=== PATIENT | female | born 1990 | race African-American/Black ===

== ENCOUNTER 2017-01-30 12:07 | Emergency (ER) | payer SELFPAY ==
[~2017-01-30] VITALS: Ht 170.2 cm; Wt 53.5 kg
[2017-01-30] MEDS ORDERED: ONDANSETRON PF 4 MG/2 ML VIAL. IV ONE (12:45)
[2017-01-30] MEDS ORDERED: IV NORMAL SALINE 1000ML BAG 1,000 ML IV ONE (12:45)
[2017-01-30] MEDS ORDERED: HYDROmorphone 2 MG/ML VIAL IV PRN (12:45)
[2017-01-30 12:48] LABS: BILIRUBIN,URINE NEGATIVE (NEG); GLUCOSE,URINE NEGATIVE (NEG); NITRITE,URINE NEGATIVE (NEG); PH,URINE 6.5; PROTEIN,URINE NEGATIVE (NEG-TRACE)
--- NOTE | 2017-01-30 12:52 | PHYS DOC ---
Past Medical History Past Medical History: No Pertinent History Additional Past Medical Histor: ectopic x2 Past Surgical History: Other Additional Past Surgical Histo: tubal with falopian tube removal. Alcohol Use: Occasionally Drug Use: None Adult General Chief Complaint Chief Complaint: ABDOMINAL PAIN HPI HPI 26-year-old female presenting with left lower quadrant abdominal pain/ suprapubic abdominal pain. Last 3 days. She has noticed increased vaginal discharge. She denies fevers or chills. She denies nausea or vomiting. The pain is a sharp shooting pain that is moderate intermittent and without alleviating factors. She does report a history of ectopic . Review of systems is negative for chest pain shortness of breath fevers or chills. All other review of systems is negative unless otherwise noted in history of present illness. ED course: 18-year-old female presenting to the emergency department with suprapubic abdominal pain in the left side. Afebrile here in the emergency room. Abdominal exam shows mild pain in the left adnexal region. Ultrasound of the pelvis was obtained along with blood work and pelvic exam performed in the presence of a female nurse. Patient has mucopurulent discharge with cervical motion tenderness without any fluctuant adnexal masses. Patient was given intramuscular Rocephin with oral doxycycline and flagyl to go home with. We'll refer the patient to our mixer wet pour Dr. Oliveira within the next 4-5 days. Review of Systems Review of Systems SEE ABOVE. Current Medications Current Medications Current Medications Medications (Trade) Dose Ordered Sig/Terri Start Time Stop Time Status Last Admin Dose Admin Ceftriaxone Sodium (Rocephin Im) 250 mg 1X ONCE 01/30/17 15:30 01/30/17 15:32 DC 01/30/17 15:39 250 MG Doxycycline Hyclate (Vibra-Tab) 100 mg 1X ONCE 01/30/17 15:30 01/30/17 15:32 DC 01/30/17 15:39 100 MG Hydromorphone HCl (Dilaudid) 0.5 mg PRN Q1HR PRN 01/30/17 12:45 01/30/17 13:17 0.5 MG Ondansetron HCl (Zofran) 4 mg 1X ONCE 01/30/17 12:45 01/30/17 12:51 DC 01/30/17 13:17 4 MG Piperacillin Sod/ Tazobactam Sod 4.5 gm/Sodium Chloride 100 ml @ 200 mls/hr 1X ONCE 01/30/17 13:45 01/30/17 14:14 UNV Sodium Chloride 1,000 ml @ 1,000 mls/hr 1X ONCE 01/30/17 12:45 01/30/17 13:44 DC 01/30/17 13:17 1,000 MLS/HR Allergies Allergies Allergies Coded Allergies Type Severity Reaction Last Updated Verified No Known Drug Allergies 01/19/14 No Physical Exam Physical Exam SEE ABOVE Constitutional: Well developed, well nourished, no acute distress, non-toxic appearance. [] HENT: Normocephalic, atraumatic, bilateral external ears normal, oropharynx moist, no oral exudates, nose normal. [] Eyes: PERRLA, EOMI, conjunctiva normal, no discharge. Neck: Normal range of motion, no tenderness, supple, no stridor. [] Cardiovascular:Heart rate regular rhythm, no murmur Lungs & Thorax: Bilateral breath sounds clear to auscultation [] Abdomen: See above Pelvic exam: See above Skin: Warm, dry, no erythema, no rash. Back: No tenderness, no CVA tenderness. [] Extremities: No tenderness, no cyanosis, no clubbing, ROM intact, no edema. Neurologic: Alert and oriented X 3, normal motor function, normal sensory function, no focal deficits noted. Psychologic: Affect normal, judgement normal, mood normal. [] Current Patient Data Vital Signs Vital Signs Date Time Temp Pulse Resp B/P (MAP) Pulse Ox O2 Delivery O2 Flow Rate FiO2 01/30/17 15:43 58 20 102/75 (84) 97 01/30/17 12:40 98.2 Room Air 98.2 Lab Values Laboratory Tests Test 01/30/17 12:26 01/30/17 12:27 01/30/17 12:55 White Blood Count 10.2 x10^3/uL (4.0-11.0) Red Blood Count 4.27 x10^6/uL (3.50-5.40) Hemoglobin 13.6 g/dL (12.0-15.5) Hematocrit 40.8 % (36.0-47.0) Mean Corpuscular Volume 96 fL (79-100) Mean Corpuscular Hemoglobin 32 pg (25-35) Mean Corpuscular Hemoglobin Concent 33 g/dL (31-37) Red Cell Distribution Width 12.5 % (11.5-14.5) Platelet Count 255 x10^3/uL (140-400) Neutrophils (%) (Auto) 76 % (31-73) H Lymphocytes (%) (Auto) 15 % (24-48) L Monocytes (%) (Auto) 7 % (0-9) Eosinophils (%) (Auto) 2 % (0-3) Basophils (%) (Auto) 1 % (0-3) Neutrophils # (Auto) 7.8 x10^3uL (1.8-7.7) H Lymphocytes # (Auto) 1.5 x10^3/uL (1.0-4.8) Monocytes # (Auto) 0.7 x10^3/uL (0.0-1.1) Eosinophils # (Auto) 0.2 x10^3/uL (0.0-0.7) Basophils # (Auto) 0.1 x10^3/uL (0.0-0.2) Urine Collection Type Unknown Urine Color Yellow Urine Clarity Clear Urine pH 6.5 Urine Specific [place] 1.025 Urine Protein Negative mg/dL (NEG-TRACE) Urine Glucose (UA) Negative mg/dL (NEG) Urine Ketones (Stick) 40 mg/dL (NEG) Urine Blood Negative (NEG) Urine Nitrite Negative (NEG) Urine Bilirubin Negative (NEG) Urine Urobilinogen Dipstick 1.0 mg/dL (0.2 mg/dL) Urine Leukocyte Esterase Small (NEG) Urine RBC 1-2 /HPF (0-2) Urine WBC 11-20 /HPF (0-4) Urine Squamous Epithelial Cells Mod /LPF Urine Bacteria 0 /HPF (0-FEW) Urine Mucus Marked /LPF Urine Trichomonas Present POC Urine HCG, Qualitative Hcg negative (Negative) Maternal Serum HCG Beta Subunit 1 mIU/mL (0-5) Sodium Level 141 mmol/L (136-145) Potassium Level 3.6 mmol/L (3.5-5.1) Chloride Level 104 mmol/L (98-107) Carbon Dioxide Level 29 mmol/L (21-32) Anion Gap 8 (6-14) Blood Urea Nitrogen 9 mg/dL (7-20) Creatinine 0.9 mg/dL (0.6-1.0) Estimated GFR (Cockcroft-Gault) 90.2 BUN/Creatinine Ratio 10 (6-20) Glucose Level 102 mg/dL (70-99) H Calcium Level 8.9 mg/dL (8.5-10.1) Total Bilirubin 0.4 mg/dL (0.2-1.0) Aspartate Amino Transferase (AST) 24 U/L (15-37) Alanine Aminotransferase (ALT) 23 U/L (14-59) Alkaline Phosphatase 102 U/L (46-116) Total Protein 7.4 g/dL (6.4-8.2) Albumin 4.1 g/dL (3.4-5.0) Albumin/Globulin Ratio 1.2 (1.0-1.7) Lipase 130 U/L (73-393) Laboratory Tests 01/30/17 12:26 Laboratory Tests 01/30/17 12:55 Microbiology 01/30/17 Wet Prep - Final, Complete EKG EKG [] Radiology/Procedures Radiology/Procedures [] Course & Med Decision Making Course & Med Decision Making Pertinent Labs and Imaging studies reviewed. (See chart for details) [] Dragon Disclaimer Dragon Disclaimer This electronic medical record was generated, in whole or in part, using a voice recognition dictation system. Departure Departure Impression: Primary Impression: Abdominal pain Additional Impression: PID (acute pelvic inflammatory disease) Disposition: 01 HOME, SELF-CARE Condition: STABLE Referrals: NO PCP (PCP) JODY OLIVEIRA Jr, MD Patient Instructions: Cervicitis, [id number] Additional Instructions: Thank you for allowing us to participate in your care today. Followup with Dr. Oliveira in 3 days if your symptoms do not improve. Call your Primary Doctor tomorrow and inform them of your visit today. If you do not have a primary care provider you can ask for a list of our primary care providers. Return to the emergency department you have any new or concerning findings. This should be evaluated by the primary care physician and any necessary consulting services for continued management within a few days after discharge. Return to emergency room if you have any new or concerning symptoms including but not limited to fever, chills, nausea, vomiting, intractable pain, any new rashes, chest pain, shortness of air, uncontrolled bleeding, difficulty breathing, and/or vision loss. Scripts Metronidazole (FLAGYL) 500 Mg Tablet 1 TAB PO BID for 14 Days, #28 TAB Prov: MIGUELITO NGUYEN MD 01/30/17 Doxycycline Hyclate (DOXYCYCLINE HYCLATE) 100 Mg Capsule 1 CAP PO BID, #27 CAP Start tomorrow morning on 01/31/17 Prov: MIGUELITO NGUYEN MD 01/30/17 Problem Qualifiers MIGUELITO NGUYEN MD Jan 30, 2017 12:52
[2017-01-30 13:03] LABS: BACTERIA,URINE 0 /HPF (0-FEW); SQUAMOUS EPITHELIAL CELL,UR MOD /LPF; TRICHOMONAS,URINE PRESENT
[2017-01-30 13:17] LABS: CALCIUM 8.9 mg/dL (8.5-10.1); CREATININE 0.9 mg/dL (0.6-1.0); GFR 90.2; POTASSIUM 3.6 mmol/L (3.5-5.1)
[2017-01-30 13:18] LABS: BASO # 0.1 x10^3/uL (0.0-0.2); BASO % 1 % (0-3); EOS % 2 % (0-3); HEMATOCRIT 40.8 % (36.0-47.0); HEMOGLOBIN 13.6 g/dL (12.0-15.5); LYMPH # 1.5 x10^3/uL (1.0-4.8); LYMPH % 15 % (24-48); MEAN CORPUSCULAR HEMOGLOBIN 32 pg (25-35); MEAN CORPUSCULAR HGB CONC 33 g/dL (31-37); MEAN CORPUSCULAR VOLUME 96 fL (79-100); MONO % 7 % (0-9); NEUT % 76 % (31-73); PLATELET COUNT 255 x10^3/uL (140-400); RED BLOOD COUNT 4.27 x10^6/uL (3.50-5.40); RED CELL DISTRIBUTION WIDTH 12.5 % (11.5-14.5); WHITE BLOOD COUNT 10.2 x10^3/uL (4.0-11.0)
--- NOTE | 2017-01-30 13:20 | RAD ---
PELVIS W/TV Clinical Indication: suprapubic abd pain, eval ovaries Comparison: None. Technique: Real-time ultrasound imaging of the pelvis using transabdominal and transvaginal window is performed. Findings: Transabdominal window is nondiagnostic due to overlying bowel gas. No pelvic free fluid. Anteverted uterus. Uterus measures 8.1 x 4.4 x 4.2 cm. No focal abnormality. The endometrial stripe is normal measuring 2 mm. Normal blood flow in the ovaries. Small follicles are seen in the ovaries. IMPRESSION: Normal pelvic ultrasound.
[2017-01-30 13:24] LABS: ALBUMIN 4.1 g/dL (3.4-5.0); ALBUMIN/GLOBULIN RATIO 1.2 (1.0-1.7); TOTAL BILIRUBIN 0.4 mg/dL (0.2-1.0); TOTAL PROTEIN 7.4 g/dL (6.4-8.2)
[2017-01-30] MEDS ORDERED: PIPERACILLIN/TAZOBACTAM 4.5 GM in IV NORMAL SALINE 100ML 100 ML IV ONE (13:45)
[2017-01-30] MEDS ORDERED: cefTRIAXone IM 250 MG VIAL IM ONE (15:30)
[2017-01-30] MEDS ORDERED: DOXYCYCLINE HYCLATE 100 MG TABLET PO ONE (15:30)
[2017-01-30] MEDS ORDERED: DOXY100C2 PO (15:33)
[2017-01-30 15:43] VITALS: BP 102/75
[2017-01-30] MEDS ORDERED: METR500T PO (16:07)
--- NOTE | 2017-02-04 14:15 | VNOTE ---
CALL BACK NOTE CALL BACK Microbiology 01/30/17 Wet Prep - Final, Complete 01/30/17 Urine Culture - Final, Complete 01/30/17 Urine Culture Result 1 (DEMI) - Final, Complete Attempted to notify patient of positive gonorrhea test from her vaginal ulcers on January 30. Patient was discharged on doxycycline and Flagyl so treatment is appropriate. Her voice mailbox was not set up so was unable to leave a message with the patient. KATERYNA [employer] PAD REPAIRER Feb 04, 2017 14:15
== END 2017-01-30 16:24 | disposition home or self-care (01) ==
LOC: ER 12:07
DX: N73.9 Female pelvic inflammatory disease, unspecified (principal)
CPT/HCPCS: 36415; 76830; 76856; 80053; 81001; 81025; 83690; 84702; 85025; 87086; 87491; 87591; 96361; 96372; 96374; 96375; 99285; J0696; J1170; J2405; J7030; Q0111

== ENCOUNTER 2018-05-16 00:15 | Emergency (ER) | payer SELFPAY ==
[~2018-05-16] VITALS: Ht 172.7 cm; Wt 54.9 kg
[~2018-05-16 00:15] MED LIST: DOXY100C2 PO; METR500T PO
[2018-05-16 00:37] LABS: BASO # 0.1 x10^3/uL (0.0-0.2); BASO % 0 % (0-3); EOS % 0 % (0-3); HEMATOCRIT 40.3 % (36.0-47.0); HEMOGLOBIN 13.6 g/dL (12.0-15.5); LYMPH # 1.5 x10^3/uL (1.0-4.8); LYMPH % 8 % (24-48); MEAN CORPUSCULAR HEMOGLOBIN 32 pg (25-35); MEAN CORPUSCULAR HGB CONC 34 g/dL (31-37); MEAN CORPUSCULAR VOLUME 94 fL (79-100); MONO # 0.3 x10^3/uL (0.0-1.1); MONO % 2 % (0-9); NEUT # 17.2 x10^3uL (1.8-7.7); NEUT % 90 % (31-73); PLATELET COUNT 259 x10^3/uL (140-400); RED BLOOD COUNT 4.28 x10^6/uL (3.50-5.40); RED CELL DISTRIBUTION WIDTH 12.8 % (11.5-14.5); WHITE BLOOD COUNT 19.1 x10^3/uL (4.0-11.0)
[2018-05-16 00:39] LABS: BILIRUBIN,URINE SMALL (NEG); CLARITY,URINE CLOUDY; COLOR,URINE AMBER; NITRITE,URINE NEGATIVE (NEG); PH,URINE 5.5; PROTEIN,URINE 30 mg/dL (NEG-TRACE)
[2018-05-16 00:47] LABS: BACTERIA,URINE FEW /HPF (0-FEW); SQUAMOUS EPITHELIAL CELL,UR MANY /LPF; WBC,URINE 20-40 /HPF (0-4)
[2018-05-16 00:54] LABS: GFR 78.8; POTASSIUM 3.5 mmol/L (3.5-5.1)
[2018-05-16 00:59] LABS: ALBUMIN 3.7 g/dL (3.4-5.0); ALBUMIN/GLOBULIN RATIO 0.8 (1.0-1.7); TOTAL PROTEIN 8.6 g/dL (6.4-8.2)
--- NOTE | 2018-05-16 00:59 | PHYS DOC ---
Past Medical History Past Medical History: No Pertinent History Additional Past Medical Histor: ectopic x3 with 1 rupture Past Surgical History: Other Additional Past Surgical Histo: tubal with falopian tube removal. Alcohol Use: Occasionally Drug Use: None Adult General Chief Complaint Chief Complaint: ABDOMINAL PAIN HPI HPI Patient is a 28 year old female who presents with abdominal pain. Patient states that she has been having diffuse lower abdominal pain, left worse than right, for the past two days. Patient states that the pain has been getting progressively worse with time. Patient denies nausea and vomiting, but does report one episode of diarrhea today. Patient states that the pain is worse with movement. Denies any alleviating factors. Denies fever, hematuria and dysuria. Patient has a history of three ectopic pregnancies with one rupture. Patient states that her current pain feels similar to the pain she has experienced with her ectopic pregnancies in the past. Patient states that her LNMP was on 05/10/18. Patient has not taken a test at home. Patient reports a history of chlamydia for which she was treated with antibiotics although she is unsure when this was. Denies fever and chills. Review of Systems Review of Systems Constitutional: Denies fever or chills. Eyes: Denies change in visual acuity, redness, or eye pain. HENT: Denies nasal congestion or sore throat. Respiratory: Denies cough or shortness of breath. Cardiovascular: Denies chest pain or palpitations. GI: Denies nausea or vomiting. : Denies dysuria or hematuria. Musculoskeletal: Denies back pain or joint pain. Integument: Denies rash or skin lesions. Neurologic: Denies headache, focal weakness or sensory changes. Complete systems were reviewed and found to be within normal limits, except as documented in this note. Current Medications Current Medications Current Medications Medications (Trade) Dose Ordered Sig/Terri Start Time Stop Time Status Last Admin Dose Admin Azithromycin (Zithromax) 1,000 mg 1X ONCE 05/16/18 01:00 05/16/18 01:03 DC 05/16/18 01:10 1,000 MG Ceftriaxone Sodium (Rocephin Im) 250 mg 1X ONCE 05/16/18 01:00 05/16/18 01:03 DC 05/16/18 01:10 250 MG Fentanyl Citrate (Fentanyl 2ml Vial) 50 mcg 1X ONCE 4/8/19 01:30 05/16/18 01:31 DC 05/16/18 01:23 50 MCG Ketorolac Tromethamine (Toradol 15mg Vial) 15 mg 1X ONCE 05/16/18 01:00 05/16/18 01:03 DC 05/16/18 01:11 15 MG Ondansetron HCl (Zofran) 4 mg 1X ONCE 05/16/18 03:15 05/16/18 03:16 DC 05/16/18 03:11 4 MG Sodium Chloride 1,000 ml @ 1,000 mls/hr 1X ONCE 05/16/18 01:00 05/16/18 01:59 DC 05/16/18 01:11 1,000 MLS/HR Allergies Allergies Allergies Coded Allergies Type Severity Reaction Last Updated Verified No Known Drug Allergies 01/19/14 No Physical Exam Physical Exam Constitutional: Well developed, well nourished, in moderate painful distress, writhing on the stretcher. HENT: Normocephalic, atraumatic, oropharynx moist, nose normal. Eyes: PERRL, conjunctiva normal, no discharge. Neck: Normal range of motion, supple, no stridor. Cardiovascular:Heart rate regular rhythm, no murmur. Lungs & Thorax: Bilateral breath sounds clear to auscultation. Abdomen: Soft. Tenderness of bilateral lower abdominal quadrants on palpation. Negative Williamson's sign. Skin: Warm, dry. Back: No tenderness, no CVA tenderness. Extremities: No tenderness, ROM intact, no edema. Pelvic: Copious amount of purulent discharge present in the vaginal vault. Significant cervical motion tenderness appreciated. Bilateral adnexal tenderness present. A female steam plant control room operator, RN, was present during the entire examination. Neurologic: Alert and oriented X 3, normal motor function, normal sensory function, no focal deficits noted. Psychologic: Affect normal. Normal speech. Current Patient Data Vital Signs Vital Signs Date Time Temp Pulse Resp B/P (MAP) Pulse Ox O2 Delivery O2 Flow Rate FiO2 05/16/18 03:50 80 16 130/72 (91) 98 05/16/18 00:24 99.4 Room Air 99.4 Lab Values Laboratory Tests Test 05/16/18 00:25 05/16/18 00:30 05/16/18 00:36 White Blood Count 19.1 x10^3/uL (4.0-11.0) H Red Blood Count 4.28 x10^6/uL (3.50-5.40) Hemoglobin 13.6 g/dL (12.0-15.5) Hematocrit 40.3 % (36.0-47.0) Mean Corpuscular Volume 94 fL (79-100) Mean Corpuscular Hemoglobin 32 pg (25-35) Mean Corpuscular Hemoglobin Concent 34 g/dL (31-37) Red Cell Distribution Width 12.8 % (11.5-14.5) Platelet Count 259 x10^3/uL (140-400) Neutrophils (%) (Auto) 90 % (31-73) H Lymphocytes (%) (Auto) 8 % (24-48) L Monocytes (%) (Auto) 2 % (0-9) Eosinophils (%) (Auto) 0 % (0-3) Basophils (%) (Auto) 0 % (0-3) Neutrophils # (Auto) 17.2 x10^3uL (1.8-7.7) H Lymphocytes # (Auto) 1.5 x10^3/uL (1.0-4.8) Monocytes # (Auto) 0.3 x10^3/uL (0.0-1.1) Eosinophils # (Auto) 0.0 x10^3/uL (0.0-0.7) Basophils # (Auto) 0.1 x10^3/uL (0.0-0.2) Segmented Neutrophils % 82 % (35-66) H Band Neutrophils % 5 % (0-9) Lymphocytes % 12 % (24-48) L Monocytes % 1 % (0-10) Toxic Granulation Slight Platelet Estimate Adequate (ADEQUATE) Sodium Level 137 mmol/L (136-145) Potassium Level 3.5 mmol/L (3.5-5.1) Chloride Level 100 mmol/L (98-107) Carbon Dioxide Level 20 mmol/L (21-32) L Anion Gap 17 (6-14) H Blood Urea Nitrogen 10 mg/dL (7-20) Creatinine 1.0 mg/dL (0.6-1.0) Estimated GFR (Cockcroft-Gault) 78.8 BUN/Creatinine Ratio 10 (6-20) Glucose Level 97 mg/dL (70-99) Calcium Level 9.0 mg/dL (8.5-10.1) Total Bilirubin 1.0 mg/dL (0.2-1.0) Aspartate Amino Transferase (AST) 19 U/L (15-37) Alanine Aminotransferase (ALT) 16 U/L (14-59) Alkaline Phosphatase 103 U/L (46-116) Total Protein 8.6 g/dL (6.4-8.2) H Albumin 3.7 g/dL (3.4-5.0) Albumin/Globulin Ratio 0.8 (1.0-1.7) L Lipase 96 U/L (73-393) Urine Collection Type Unknown Urine Color [place] Urine Clarity Cloudy Urine pH 5.5 Urine Specific [place] >=1.030 Urine Protein 30 mg/dL (NEG-TRACE) Urine Glucose (UA) Negative mg/dL (NEG) Urine Ketones (Stick) >=80 mg/dL (NEG) Urine Blood Moderate (NEG) Urine Nitrite Negative (NEG) Urine Bilirubin Small (NEG) Urine Urobilinogen Dipstick 1.0 mg/dL (0.2 mg/dL) Urine Leukocyte Esterase Moderate (NEG) Urine RBC 3-5 /HPF (0-2) Urine WBC 20-40 /HPF (0-4) Urine Squamous Epithelial Cells Many /LPF Urine Bacteria Few /HPF (0-FEW) Urine Mucus Marked /LPF POC Urine HCG, Qualitative Hcg negative (Negative) Laboratory Tests 05/16/18 00:25 Laboratory Tests 05/16/18 00:25 Microbiology 05/16/18 Wet Prep - Final, Complete EKG EKG [] Radiology/Procedures Radiology/Procedures PROCEDURE: CT ABDOMEN PELVIS WO CONTRAST EXAM: CT Abdomen and Pelvis without IV contrast CLINICAL HISTORY: left flank/LLQ pain, eval for ureteral calculi. COMPARISON: none TECHNIQUE: Helical CT of the abdomen and pelvis without intravenous contrast. Axial, coronal and sagittal reformatted images were generated. PQRS compliance statement - One or more of the following individualized dose reduction techniques were utilized for this study: 1. Automated exposure control 2. Adjustment of the mA and/or kV according to patient size 3. Use of iterative reconstruction technique FINDINGS: Lack of intravenous contrast and visceral fat limits evaluation of solid organs, vasculature, and lymph nodes. Lower chest: Lung bases are clear. Abdomen and Pelvis: No focal liver lesion. Spleen is unremarkable. Adrenal glands are normal. Pancreas is unremarkable. High density material layering dependently within the gallbladder likely sludge. No biliary ductal dilatation. No focal renal lesion. No hydronephrosis. No hydroureter. Marked thickening of the bladder wall may be seen with cystitis. Trace free pelvic fluid. Moderate colonic stool content is seen. The appendix is not convincingly seen. No evidence for bowel obstruction. No abdominal pelvic ascites. No abdominal or pelvic lymphadenopathy. Bones: Osseous structures are grossly unremarkable. IMPRESSION: 1. No definite renal tract calculus. 2. Marked thickening of the bladder wall may represent cystitis. 3. Trace free pelvic fluid. 4. High density material within the gallbladder likely sludge. Electronically signed by: Rico Mccullough MD (05/16/2018 2:24 AM) [facility] . PROCEDURE: PELVIS W/TV INDICATION: SEVERE PELVIC PAIN FOR 2 DAYS. Last menstrual period was 05/10/2018. COMPARISON: None available. TECHNIQUE: Transabdominal and endovaginal sonography was performed FINDINGS: Exam was Limited/incomplete as the patient couldn't tolerate further imaging given pain. The uterus measures 6.8 cm in length. The endometrium measures 0.4 cm on endovaginal images. There is no focal myometrial abnormality The right ovary measures 4.2 x 3.1 x 1.5 cm on endovaginal images. Flow is seen to the right ovary. Echogenic structure in the right adnexa measures 4.4 x 2.3 x 1.2 cm. The left ovary measures 3 x 2.9 x 2.3 cm on endovaginal images. Flow is seen to the left ovary. 1.2 cm follicle is seen. There is small volume free fluid. IMPRESSION: 1. No evidence for ovarian torsion. 2. If equivocal right adnexal mass superior to the right ovary measuring up to 4.4 cm in size. This was not convincingly seen on the prior CT which was done without IV contrast. Consider short interval follow-up ultrasound imaging or further evaluation with MRI to assess this right adnexal mass. 3. Small volume free pelvic fluid Electronically signed by: Rico Mccullough MD (05/16/2018 2:29 AM) [facility] Course & Med Decision Making Course & Med Decision Making Patient is a 28 year old female who presents for evaluation of abdominal pain. Treated with 15mg Ketorolac for pain in the ED. test is negative. Patient states that she has recently been treated for sexually transmitted infections, but has no gotten the results yet and is requesting to be empirically treated. Ceftriaxone and azithromycin ordered to cover for gonorrhea and chlamydia. On reexamination, patient is still complaining of pain. 50mcg Fentanyl ordered. Pertinent Labs and Imaging studies reviewed. (See chart for details). Pelvic ultrasound reveals a right adnexal mass. CT does not reveal any acute pelvic abnormality. Urine appears contaminated, likely from copious amounts of purulent vaginal discharge. Patient denies experiencing any urinary symptoms. Will treat patient with Flagyl and Doxycycline due to significant amount of purulent vaginal discharge noted on pelvic exam. Patient stable for discharge with outpatient follow-up with PCP. Discussed findings and plan with patient and family, who acknowledge understanding and agreement. Dragon Disclaimer Dragon Disclaimer This electronic medical record was generated, in whole or in part, using a voice recognition dictation system. Departure Departure Impression: Primary Impression: Pelvic pain Additional Impressions: Adnexal mass PID (acute pelvic inflammatory disease) Bacterial vaginitis Disposition: HOME, SELF-CARE Condition: STABLE Referrals: NO PCP (PCP) PEDRO PABLO MONDRAGON MD Patient Instructions: Bacterial Vaginosis, [id number], Incidental Abnormal Radiological Finding, Pelvic Inflammatory Disease, [id number], Pelvic Pain, Female, [id number] Scripts Hydrocodone/Apap 5-325 (NORCO 5-325 TABLET) 1 Each Tablet 1 TAB PO PRN Q6HRS PRN for PAIN, #10 TAB 0 Refills Prov: SAL CARR DO 05/16/18 Metronidazole (FLAGYL) 500 Mg Tablet 500 MG PO BID, #28 TAB Prov: SAL CARR DO 05/16/18 Doxycycline Monohydrate (DOXYCYCLINE MONOHYDRATE) 100 Mg Capsule 1 CAP PO BID, #28 CAP Prov: SAL CARR DO 05/16/18 Problem Qualifiers SAL CARR DO May 16, 2018 00:59
[2018-05-16] MEDS ORDERED: KETOROLAC 15 MG/ML VIAL. IV ONE (01:00)
[2018-05-16] MEDS ORDERED: AZITHROMYCIN 250 MG TABLET. PO ONE (01:00)
[2018-05-16] MEDS ORDERED: IV NORMAL SALINE 1000ML BAG 1,000 ML IV ONE (01:00)
[2018-05-16] MEDS ORDERED: cefTRIAXone IM 250 MG VIAL IM ONE (01:00)
[2018-05-16 01:12] LABS: % BANDS 5 % (0-9); % LYMPHS 12 % (24-48); % MONOS 1 % (0-10); % SEGS 82 % (35-66); PLT ESTIMATE ADEQUATE (ADEQUATE); TOXIC GRANULATION SLIGHT
[2018-05-16] MEDS ORDERED: fentaNYL PF VIAL 100 MCG/2 ML VIAL IV ONE (01:30)
--- NOTE | 2018-05-16 02:26 | RAD ---
EXAM: CT Abdomen and Pelvis without IV contrast CLINICAL HISTORY: left flank/LLQ pain, eval for ureteral calculi. COMPARISON: none TECHNIQUE: Helical CT of the abdomen and pelvis without intravenous contrast. Axial, coronal and sagittal reformatted images were generated. PQRS compliance statement - One or more of the following individualized dose reduction techniques were utilized for this study: 1. Automated exposure control 2. Adjustment of the mA and/or kV according to patient size 3. Use of iterative reconstruction technique FINDINGS: Lack of intravenous contrast and visceral fat limits evaluation of solid organs, vasculature, and lymph nodes. Lower chest: Lung bases are clear. Abdomen and Pelvis: No focal liver lesion. Spleen is unremarkable. Adrenal glands are normal. Pancreas is unremarkable. High density material layering dependently within the gallbladder likely sludge. No biliary ductal dilatation. No focal renal lesion. No hydronephrosis. No hydroureter. Marked thickening of the bladder wall may be seen with cystitis. Trace free pelvic fluid. Moderate colonic stool content is seen. The appendix is not convincingly seen. No evidence for bowel obstruction. No abdominal pelvic ascites. No abdominal or pelvic lymphadenopathy. Bones: Osseous structures are grossly unremarkable. IMPRESSION: 1. No definite renal tract calculus. 2. Marked thickening of the bladder wall may represent cystitis. 3. Trace free pelvic fluid. 4. High density material within the gallbladder likely sludge. Electronically signed by: Rico Mccullough MD (05/16/2018 2:24 AM) [id number]
--- NOTE | 2018-05-16 02:31 | RAD ---
INDICATION: SEVERE PELVIC PAIN FOR 2 DAYS. Last menstrual period was 05/10/2018. COMPARISON: None available. TECHNIQUE: Transabdominal and endovaginal sonography was performed FINDINGS: Exam was Limited/incomplete as the patient couldn't tolerate further imaging given pain. The uterus measures 6.8 cm in length. The endometrium measures 0.4 cm on endovaginal images. There is no focal myometrial abnormality The right ovary measures 4.2 x 3.1 x 1.5 cm on endovaginal images. Flow is seen to the right ovary. Echogenic structure in the right adnexa measures 4.4 x 2.3 x 1.2 cm. The left ovary measures 3 x 2.9 x 2.3 cm on endovaginal images. Flow is seen to the left ovary. 1.2 cm follicle is seen. There is small volume free fluid. IMPRESSION: 1. No evidence for ovarian torsion. 2. If equivocal right adnexal mass superior to the right ovary measuring up to 4.4 cm in size. This was not convincingly seen on the prior CT which was done without IV contrast. Consider short interval follow-up ultrasound imaging or further evaluation with MRI to assess this right adnexal mass. 3. Small volume free pelvic fluid Electronically signed by: Rico Mccullough MD (05/16/2018 2:29 AM) [facility]
[2018-05-16] MEDS ORDERED: CEPH-264 PO (02:39)
[2018-05-16] MEDS ORDERED: ONDANSETRON PF 4 MG/2 ML VIAL. IV ONE (03:15)
[2018-05-16] MEDS ORDERED: DOXY100C14 PO (03:40)
[2018-05-16] MEDS ORDERED: HYDR-3164 PO (03:40)
[2018-05-16] MEDS ORDERED: METR500T PO (03:40)
[2018-05-16 03:50] VITALS: BP 130/72
[2018-05-17 14:16] LABS: GC PROBE Positive (Negative)
== END 2018-05-16 04:10 | disposition home or self-care (01) ==
LOC: ER 00:15
DX: N76.0 Acute vaginitis (principal); B96.89 Other specified bacterial agents as the cause of diseases classified elsewhere; N73.0 Acute parametritis and pelvic cellulitis; R10.2 Pelvic and perineal pain; R19.7 Diarrhea, unspecified
CPT/HCPCS: 36415; 74176; 76830; 76856; 80053; 81001; 81025; 83690; 85007; 85025; 87086; 87491; 87591; 96361; 96372; 96374; 96375; 99284; J0696; J1885; J2405; J3010; J7030; Q0111; Q0144

== ENCOUNTER 2020-03-17 02:02 | Emergency (ER) | payer OTHER ==
[~2020-03-17] VITALS: Ht 172.7 cm; Wt 120.0 kg
[~2020-03-17 02:02] MED LIST changes: +CEPH-264 PO; +DOXY-181 PO; +HYDR-3164 PO
[2020-03-17 02:18] VITALS: BP 124/76
[2020-03-17] MEDS ORDERED: LIDO1ADH78 TP (03:23)
[2020-03-17] MEDS ORDERED: CYCL10TA2 PO (03:23)
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
[2020-03-17] MEDS ORDERED: LIDOCAINE (700MG/PATCH) PATCH. TD ONE (03:30)
[2020-03-17] MEDS ORDERED: KETOROLAC 15 MG/ML VIAL. IM ONE (03:45)
== END 2020-03-17 03:43 | disposition home or self-care (01) ==
LOC: ER 02:02
DX: G89.11 Acute pain due to trauma (principal); M54.5 Low back pain; M54.2 Cervicalgia; F17.200 Nicotine dependence, unspecified, uncomplicated; Z98.51 Tubal ligation status; Z98.890 Other specified postprocedural states; V98.8XXA Other specified transport accidents, initial encounter; Y93.89 Activity, other specified; Y92.413 State road as the place of occurrence of the external cause; Y99.8 Other external cause status
CPT/HCPCS: 81025; 96372; 99283; J1885